=== PATIENT | female | born 1980 | race Caucasian/White ===

== ENCOUNTER 2017-10-24 04:22 | Inpatient (IN) | payer OTHER ==
[2017-10-24] MEDS ORDERED: LACTATED RINGER'S 1,000 ML IV (04:29)
[2017-10-24] MEDS ORDERED: MISOPROSTOL 200 MCG TAB PR ×2 (04:30→11:00)
[2017-10-24] MEDS ORDERED: AMPICILLIN 2 GM/NS (PMX) 100 ML IV (04:30)
[2017-10-24] MEDS ORDERED: BUTORPHANOL 2 MG INJ IV (04:30)
[2017-10-24] MEDS ORDERED: METHYLERGONOVINE 0.2 MG INJ IM ×2 (04:30→11:00)
[2017-10-24] MEDS ORDERED: LIDOCAINE 1% (MPF) 30 ML INJ INJ (04:30)
[2017-10-24] MEDS ORDERED: OXYTOCIN 30 UNITS/LR 500 ML IV ×2 (04:30→11:00)
[2017-10-24] MEDS ORDERED: CARBOPROST 250 MCG INJ IM ×2 (04:30→11:00)
[2017-10-24] MEDS: LACTATED RINGER'S 1,000 ML IV (05:20)
[2017-10-24 05:53] LABS: ADD MAN DIFF? NO
[2017-10-24 05:57] LABS: BASOPHIL # 0.1 10^3/ul (0.0-0.1); BASOPHILS % 0.5 % (0.0-2.0); EOSINOPHILS # 0.1 10^3/ul (0.0-0.5); EOSINOPHILS % 1.3 % (0.0-7.0); HEMATOCRIT 38.1 % (37.0-47.0); HEMOGLOBIN 12.6 g/dl (12.0-16.0); LYMPHOCYTES # 3.3 10^3/ul (0.8-2.9); LYMPHOCYTES % 30.1 % (15.0-51.0); MEAN CORPUSCULAR HEMOGLOBIN 27.9 pg (29.0-33.0); MEAN CORPUSCULAR HGB CONC 33.1 g/dl (32.0-37.0); MEAN CORPUSCULAR VOLUME 84.3 fl (82.0-101.0); MEAN PLATELET VOLUME 11.4 fl (7.4-10.4); MONOCYTE # 0.7 10^3/ul (0.3-0.9); MONOCYTES % 6.7 % (0.0-11.0); NEUTROPHIL # 6.8 10^3/ul (1.6-7.5); NEUTROPHILS % 60.9 % (39.0-77.0); PLATELET COUNT 250 10^3/UL (140-415); RED BLOOD COUNT 4.52 10^6/ul (4.20-5.40); RED CELL DISTRIBUTION WIDTH 15.3 % (11.5-14.5)
[2017-10-24 05:57] LABS: WHITE BLOOD COUNT 11.1 10^3/ul (4.8-10.8)
[2017-10-24 06:17] LABS: INR 0.95; PROTIME 12.8 Sec (11.9-14.9)
[2017-10-24 06:18] LABS: PARTIAL THROMBOPLASTIN TIME 29.1 Sec (25.0-35.0)
[2017-10-24 06:20] LABS: ALANINE AMINOTRANSFERASE 32 IU/L (13-69); ALBUMIN 3.6 g/dl (3.3-4.9); ALBUMIN/GLOBULIN RATIO 1.12; ALKALINE PHOSPHATASE 164 IU/L (42-121); ANION GAP 16 (8-16); ASPARTATE AMINO TRANSFERASE 19 IU/L (15-46); BILIRUBIN,INDIRECT 0.1 mg/dl (0-1.1); BILIRUBIN,TOTAL 0.1 mg/dl (0.2-1.3); BLOOD UREA NITROGEN 11 mg/dl (7-20); CALCIUM 9.1 mg/dl (8.4-10.2); CARBON DIOXIDE 21 mmol/L (21-31); CHLORIDE 105 mmol/L (97-110); CREATININE 0.52 mg/dl (0.44-1.00); GLUCOSE 106 mg/dl (70-220); POTASSIUM 3.9 mmol/L (3.5-5.1); SODIUM 138 mmol/L (135-144); TOTAL PROTEIN 6.8 g/dl (6.1-8.1); URIC ACID 4.5 mg/dl (3.1-7.9)
[2017-10-24 06:43] LABS: ADD UMIC YES; UR ASCORBIC ACID NEGATIVE (NEGATIVE); UR BACTERIA FEW /HPF (NONE SEEN); UR BILIRUBIN (Dip) NEGATIVE (NEGATIVE); UR BLOOD (Dip) 3+ mg/dL (NEGATIVE); UR CLARITY CLOUDY (CLEAR); UR COLOR RED (YELLOW); UR GLUCOSE (Dip) NEGATIVE (NEGATIVE); UR KETONES (Dip) NEGATIVE (NEGATIVE); UR LEUKOCYTE ESTERASE (Dip) 1+ Leu/ul (NEGATIVE); UR MUCUS FEW /HPF (NONE SEEN); UR NITRITE (Dip) NEGATIVE (NEGATIVE); UR RBC 4 /HPF (0-5); UR SPECIFIC GRAVITY (Dip) 1.017 (1.003-1.030); UR SQUAMOUS EPITHELIAL CELL MODERATE /HPF (FEW); UR TOTAL PROTEIN (Dip) 1+ mg/dl (NEGATIVE); UR UROBILINOGEN (Dip) NEGATIVE (NEGATIVE); UR WBC 23 /HPF (0-5)
[2017-10-24 07:19] LABS: HEPATITIS B SURFACE ANTIGEN NEGATIVE (NEGATIVE)
[2017-10-24] MEDS: OXYTOCIN 30 UNITS/LR 500 ML IV ×3 (07:24→12:55)
[2017-10-24] MEDS: IBUPROFEN 600 MG TAB PO ×2 (07:26→13:10)
[2017-10-24] MEDS: OXYCODONE/ACETAMINOPHEN (5/325) TAB PO (08:23)
[2017-10-24] MEDS ORDERED: AMPICILLIN 1 GM/NS (PMX) 50 ML IV (08:30)
[2017-10-24] MEDS: LACTATED RINGER'S 1,000 ML IV* (10:58)
[2017-10-24] MEDS ORDERED: OXYCODONE/ASPIRIN (4.88/325) TAB PO ×2 (11:00)
[2017-10-24] MEDS ORDERED: LANOLIN 7 GM TUBE TOP (11:00)
[2017-10-24] MEDS ORDERED: ZOLPIDEM 5 MG TAB PO (11:00)
[2017-10-24] MEDS: BENZOCAINE 20% 56 ML SPRAY TOP (13:21)
[2017-10-24] MEDS: WITCH HAZEL/GLYCERIN PAD PR (13:21)
[2017-10-24] MEDS ORDERED: ALPRAZOLAM 0.5 MG TAB PO (13:30)
[2017-10-24 15:24] LABS: RAPID PLASMA REAGIN NONREACTIVE (NR)
[2017-10-24] MEDS ORDERED: SENNA/DOCUSATE NA (8.6MG/50MG) TAB PO (21:00)
[2017-10-26] MEDS ORDERED: DIPHTH/TET/ACEL PERTUSS (ADULT) 0.5 ML VIAL IM* (09:00)
== END 2017-10-24 13:38 | disposition home or self-care (01) | DRG 775 ==
LOC: OBT 04:22 → L-D 04:22 → OBT 04:27 → L-D 04:27 → PP1 09:43
PROC: 10E0XZZ Delivery of Products of Conception, External Approach (ICD-10-PCS; principal; 2017-10-24)
PROC: 4A1HXCZ Monitoring of Products of Conception, Cardiac Rate, External Approach (ICD-10-PCS; 2017-10-24)
DX: O80 Encounter for full-term uncomplicated delivery (principal); Z37.0 Single live birth; Z3A.38 38 weeks gestation of pregnancy
CPT/HCPCS: 80053; 81001; 84560; 85025; 85610; 85730; 86592; 86900; 86901; 87340; 93005; 99464

== ENCOUNTER 2017-12-13 17:10 | Emergency (ER) | payer OTHER ==
[2017-12-13] MEDS: HYDROCODONE/APAP (5/325) TAB PO (20:54)
== END 2017-12-13 23:30 | disposition home or self-care (01) ==
LOC: FTE 17:10
DX: M54.5 Low back pain (principal); M79.662 Pain in left lower leg
CPT/HCPCS: 72131; 99284-25

== ENCOUNTER 2018-07-30 16:34 | Emergency (ER) | payer OTHER ==
[2018-07-30 19:03] LABS: ADD UMIC NO; UR ASCORBIC ACID 40 mg/dL (NEGATIVE); UR BILIRUBIN (Dip) NEGATIVE (NEGATIVE); UR BLOOD (Dip) NEGATIVE (NEGATIVE); UR CLARITY CLEAR (CLEAR); UR COLOR YELLOW (YELLOW); UR GLUCOSE (Dip) NEGATIVE (NEGATIVE); UR KETONES (Dip) NEGATIVE (NEGATIVE); UR LEUKOCYTE ESTERASE (Dip) NEGATIVE Leu/ul (NEGATIVE); UR NITRITE (Dip) NEGATIVE (NEGATIVE); UR SPECIFIC GRAVITY (Dip) 1.025 (1.003-1.030); UR TOTAL PROTEIN (Dip) NEGATIVE (NEGATIVE); UR UROBILINOGEN (Dip) NEGATIVE (NEGATIVE)
== END 2018-07-30 22:47 | disposition home or self-care (01) ==
LOC: FTE 16:34
DX: R32 Unspecified urinary incontinence (principal)
CPT/HCPCS: 72146; 72148; 81003; 99284-25